=== PATIENT | female | born 1955 | race Caucasian/White ===

== ENCOUNTER → 2016-11-19 | Outpatient (REF) | LOC: ZLAB.WCH 15:26 | DX: Z01.89 Encounter for other specified special examinations (principal) ==

== ENCOUNTER → 2016-12-24 | Outpatient (REF) | LOC: ZLAB.WCH 10:25 | DX: Z01.89 Encounter for other specified special examinations (principal) ==

== ENCOUNTER → 2017-03-05 | Outpatient (REF) | LOC: ZLAB.WCH 18:46 | DX: Z01.89 Encounter for other specified special examinations (principal) ==